=== PATIENT | male | born 1965 | race Caucasian/White ===

== ENCOUNTER 2016-06-21 12:38 | Emergency (ER) | payer OTHER ==
[~2016-06-21] VITALS: Ht 186.7 cm; Wt 109.1 kg
[2016-06-21 12:48] VITALS: BP 142/75; PULSE 86; RESP 19; O2SAT 98
--- NOTE | 2016-06-21 12:50 | ED.REPORT ---
HPI-Abd Pain M 40 and Over Date of Service Jun 21, 2016 ED Provider: Migel Gomez MD 50 year old male with a history of GERD presents to the ER complaining of epigastric abdominal pain onset an hour ago. He describes the pain as "bloated" in character, with intermittent sharp pain. At symptom onset he elicited vomiting because he suspected food poisoning. Patient denies fever, hematemesis , back pain, dysuria, hematuria, constipation, and diarrhea. He also reports that he frequently has bright red blood in his stool due to recurrent constipation and hemorrhoids. Nursing Notes Stated Complaint: ABDOMINAL PAIN Chief Complaint: Male Abdominal Pain Nursing Notes Reviewed: Yes Allergies: Coded Allergies: No Known Drug Allergies (Verified Allergy, Unknown, 06/21/16) Scheduled Ranitidine (Ranitidine) 150 Mg Capsule 150 MG PO BID General Time Seen by MD: 12:48 Chief Complaint Abdominal pain Hx Obtained From: Patient Arrived By: Walk-in Sudden in Onset?: No Onset Occurred: 1 - 4 hours ago Symptom Duration: Since onset Location: : Epigastric Quality: Painful, Pressure, Sharp Radiation: : Does not radiate Severity: Current: Moderate Severity: Maximum: Moderate Associated with: Reports: Nausea, Vomiting, Denies: Constipation, Diarrhea, Dysuria, Fever, Hematemesis, Hematochezia, Hematuria, Melena Pertinent Negative: Pt denies other symptoms Context Related History: Reports: GERD Similar Sx Previous: No Past Medical History Past Medical History Recurrent constipation Reports: GERD Review of Systems Constitutional: Denies: Chills, Fever Respiratory: Denies: Non-productive cough, Shortness of breath Cardiovascular: Denies: Chest pain GI: Reports: Abdominal pain, Nausea, Vomiting, Denies: Constipation, Diarrhea, Hematemesis, Hematochezia Male: Denies Dysuria, Denies Flank pain, Denies Hematuria Musculoskeletal: Denies: Back pain Complete sys rev & neg: except as marked. Physical Exam Initial Vital Signs Vital Signs (First) Date Time Temp Pulse Resp B/P Pulse Ox O2 Delivery O2 Flow Rate FiO2 06/21/16 12:48 36.9 86 19 142/75 98 Room Air Initial VS: Reviewed Head / Eyes: Atraumatic, Normocephalic Neck: Supple, Non-tender, Full range of motion Extremities: Vascular intact, Neuro intact, No swelling, No tenderness Skin: Warm, Dry, No cyanosis Neurologic: Alert, Oriented, Nonfocal General/Constitutional: Awake, Alert, Well developed Respiratory / Chest: Breath sounds NL, Breath sounds = bilat, No respiratory distress, No rales, No rhonchi, No wheezing Cardiovascular: Heart rate NL, Regular rhythm, Heart sounds NL, Peripheral circulation NL Abdomen: Soft, No guarding, No rebound Tenderness/Guarding/Rebound: Positive: Tender epigastric Interpretation & Diagnostics Lab Results Interpretation Result Diagram: 06/21/16 1300 06/21/16 1300 Test 06/21/16 13:00 White Blood Count 10.8th/mm3 (3.8-10.1) Red Blood Count 6.15mil/mm3 (4.40-5.80) Hemoglobin 17.2g/dL (13.8-17.2) Hematocrit 50.0% (41.0-50.0) Mean Corpuscular Volume 81.3fL (81-100) Mean Corpuscular Hemoglobin 28.0pg (27.0-35.0) Mean Corpuscular Hemoglobin Concent 34.4% (32.0-37.0) Red Cell Distribution Width 14.9% (12.3-15.4) Platelet Count 206bil/L (150-400) Neutrophils (%) (Auto) 85.5% (40-74) Lymphocytes (%) (Auto) 7.8% (14-46) Monocytes (%) (Auto) 5.0% (4-12) Eosinophils (%) (Auto) 1.4% (0-5) Basophils (%) (Auto) 0.1% (0-3) Sodium Level 136mEq/L (134-144) Potassium Level 4.0mEq/L (3.5-5.2) Chloride Level 99mEq/L (97-108) Carbon Dioxide Level 22mmol/L (18-29) Blood Urea Nitrogen 22mg/dL (6-24) Creatinine 0.96mg/dL (0.76-1.27) Estimat Glomerular Filtration Rate 88mL/min (>59) Glucose Level 117mg/dL (60-99) Calcium Level 9.1mg/dL (8.5-10.1) Magnesium Level 1.8mg/dL (1.6-2.6) Total Bilirubin 2.1mg/dL (0.0-1.2) Aspartate Amino Transf (AST/SGOT) 22U/L (0-50) Alanine Aminotransferase (ALT/SGPT) 28U/L (0-44) Alkaline Phosphatase 68U/L (25-150) Total Protein 7.4g/dL (6.4-8.4) Albumin 4.7g/dL (3.4-5.0) Lipase 26U/L (13-60) Hold Wilson Top Tube Received (Received) ECG Interpretation ECG Interpretation: Sinus rhythm, rate [address] T changes Time: 13:21 Interpreted by: ED physician Re-Eval/Medical Decision Med Decision/Clinical Course 50-year-old male history of GERD presenting with epigastric pain since this afternoon. Denies any bowel or bladder symptoms. Denies chest pain. Abdomen with mild epigastric tenderness. No right upper quadrant tenderness. Vital signs stable. Patient felt much better after GI cocktail. Labs unremarkable other than mild leukocytosis 10,002 tbili 2. He is on truvada. Given no right upper quadrant tenderness and his pain resolved with GI cocktail did not think a right upper quadrant ultrasound is indicated emergently at this time. Recommend he follow-up with his primary doctor with return precautions. Patient agrees with plan. Time of Eval: 13:53 Re-Evaluation/Progress Note: Pain almost completely resolved after Gi cocktail. No RUQ pain. Discussed physical examination findings and plan to discharge. Patient is amenable to the plan. Return precautions given. All other questions addressed. Counseled Regarding: Diagnosis, Lab results, Need for follow-up, When/why to return to ED Discharge & Departure Primary Impression: Generalized abdominal pain Additional Impression: Gastritis Disposition: Home Vital Signs - All Vital Signs Date Time Temp Pulse Resp B/P Pulse Ox O2 Delivery O2 Flow Rate FiO2 06/21/16 14:40 88 16 136/76 97 Room Air 06/21/16 14:32 88 16 136/76 97 Room Air 06/21/16 13:30 91 16 140/76 97 Room Air 06/21/16 13:00 87 16 142/64 97 06/21/16 12:48 36.9 86 19 142/75 98 Room Air )( All Prior VS Reviewed: Yes Condition: Improved Patient Instructions: Gastritis (ED) Additional Instructions: Continue taking Prilosec. Take Ranitidine as prescribed. Follow-up with your primary care doctor in 1-2 days. Return to the ER if you develop new or worsening abdominal pain, blood in your stool/vomit, fever, chills, diarrhea, or any other concerning symptoms. Referrals: [facility] (PCP) [facility] Attestation Portions of this note were transcribed by Tom Hunter. I, Dr. Gomez, personally performed the history, physical exam and medical decision-making; I reviewed and confirmed the accuracy of the information in the transcribed note. Signed by: Segun Gibbs, 06/21/2016 at 14:01 copies to: [facility] Migel Gomez MD Jun 21, 2016 12:50 TOM HUNTER Jun 21, 2016 12:59
[2016-06-21] MEDS ORDERED: 0.9% Sodium Chloride 1,000 ML IV ONE (12:57)
[2016-06-21 13:00] VITALS: BP 142/64; PULSE 87; RESP 16; O2SAT 97
[2016-06-21] MEDS ORDERED: Ondansetron 2 mg/mL 2 mL Inj IVPUSH PRN (13:00)
[2016-06-21] MEDS ORDERED: LidocaineVisc 2%:Antacid 1:1 10 mL Syringe PO ONE (13:00)
[2016-06-21 13:16] LABS: BASOPHILS % (AUTO) 0.1 % (0-3); EOSINOPHILS % (AUTO) 1.4 % (0-5); Mean Corpuscular Volume 81.3 fL (81-100); NEUTROPHILS % (AUTO) 85.5 % (40-74); Platelet Count 206 bil/L (150-400)
[2016-06-21 13:30] VITALS: BP 140/76; PULSE 91; RESP 16; O2SAT 97
[2016-06-21 13:36] LABS: Magnesium 1.8 mg/dL (1.6-2.6)
[2016-06-21] MEDS ORDERED: RANI150C4 PO (14:01)
[2016-06-21 14:32] VITALS: BP 136/76; PULSE 88; RESP 16; O2SAT 97
[2016-06-21 14:40] VITALS: BP 136/76; PULSE 88; RESP 16; O2SAT 97
== END 2016-06-21 14:03 | disposition home or self-care (01) ==
LOC: SED 12:38
DX: K29.70 Gastritis, unspecified, without bleeding (principal); K21.9 Gastro-esophageal reflux disease without esophagitis
CPT/HCPCS: 36415; 80053; 83690; 83735; 85025; 93005; 96361; 96374; 96375; 99284; J2270; J2405; J7030